=== PATIENT | female | born 1955 | race Caucasian/White ===

== ENCOUNTER 2019-08-11 05:25 | Observation (INO) ==
[2019-08-11] MEDS ORDERED: PROPOFOL 10 MG/1 ML (200 MG/20 ML) VIAL IV ONE ×2 (05:52→06:10)
[2019-08-11] MEDS ORDERED: Sodium Chloride 0.9% 1,000 ML PRIMARY IV ONE (05:55)
[2019-08-11] MEDS ORDERED: HYDROmorphone 2 MG/1 ML IVP ONE (06:15)
[2019-08-11 07:43] LABS: BASOPHILS # (AUTO) 0.04 10*3/UL; BASOPHILS % (AUTO) 0.4 % (0-1); BLOOD UREA NITROGEN 10 mg/dL (7-22); EOSINOPHILS # (AUTO) 0.22 10*3/UL; Hematocrit [HCT] 45.2 % (37.0-47.0); Hemoglobin [HGB] 14.6 g/dL (12.0-16.0); LYMPHOCYTES # (AUTO) 5.47 10*3/uL; MEAN CORPUSCULAR HGB CONC 32.3 g/dL (33-37); MEAN CORPUSCULAR VOLUME 89.2 FL (81-99); MONOCYTES # (AUTO) 1.01 10*3/UL (0.3-0.8); MONOCYTES % (AUTO) 9.3 % (5-15); NEUTROPHILS # (AUTO) 4.07 10*3/UL; NEUTROPHILS % (AUTO) 37.6 % (50-80); RED BLOOD COUNT 5.07 10^6/uL (4.20-5.40); SERUM ALBUMIN 4.3 g/dL (3.5-4.8)
[2019-08-11 07:44] LABS: PLATELET MORPHOLOGY COMMENT NORMAL MORPHOLOGY (NORM); RBC MORPHOLOGY COMMENT NORMAL MORPHOLOGY (NORM); WBC MORPHOLOGY COMMENT NORMAL MORPHOLOGY (NORM)
[2019-08-11] MEDS ORDERED: DOCUSATE 100 MG CAPSULE PO PRN (08:28)
[2019-08-11] MEDS ORDERED: CALCIUM CARBONATE 500 MG (TUMS) CHEWABLE TABLET PO PRN (08:28)
[2019-08-11] MEDS ORDERED: LIDOCAINE W/ SODIUM BICARB 0.5 ML SYR SUBD PRN (08:28)
[2019-08-11] MEDS ORDERED: POTASSIUM CHLORIDE 20 MEQ TAB PO ONE (08:28)
[2019-08-11] MEDS ORDERED: HYDROcodone-APAP 10 MG-325 MG TABLET PO PRN (08:28)
[2019-08-11] MEDS ORDERED: ACETAMINOPHEN 325 MG TABLET PO PRN (08:28)
[2019-08-11] MEDS ORDERED: ONDANSETRON 4 MG/2 ML VIAL IVP PRN (08:28)
[2019-08-11] MEDS ORDERED: tiZANidine Tab 4 MG TAB PO SCH (09:00)
[2019-08-11] MEDS ORDERED: buPROPion XL Tab 150 MG TAB PO SCH (09:00)
[2019-08-11] MEDS ORDERED: MOMETASONE INH SCH (09:00)
[2019-08-11] MEDS ORDERED: FORMOTEROL INH SCH (09:00)
[2019-08-11] MEDS ORDERED: ETODOLAC 500 MG PO SCH (09:00)
[2019-08-11] MEDS ORDERED: MOMETASONE FUROATE ENOS SCH (09:00)
[2019-08-11] MEDS: HYDROmorphone 2 MG/1 ML IVP PRN ×3 (09:02→18:57)
[2019-08-11] MEDS: PREGABALIN 100 MG CAPSULE PO SCH ×3 (10:14→15:04)
[2019-08-11] MEDS: ESCITALOPRAM 10 MG TABLET PO SCH ×2 (10:14→10:22)
[2019-08-11] MEDS ORDERED: Sodium Chloride 0.9% 500 ML IV ONE (11:57)
[2019-08-11] MEDS ORDERED: Sodium Chloride 0.9% 1,000 ML PRIMARY IV SCH (15:00)
[2019-08-11 16:04] VITALS: BP 118/76
[2019-08-11 19:46] VITALS: RESP 16; TEMP 99; O2SAT 96
[2019-08-11] MEDS ORDERED: traZODone Tab 50 MG TAB PO SCH (21:00)
[2019-08-11] MEDS ORDERED: Montelukast Tab 10 MG TAB PO SCH (21:00)
[2019-08-11] MEDS ORDERED: Simvastatin Tab 40 MG TAB PO SCH (21:00)
== END 2019-08-11 20:03 | disposition short-term general hospital (02) ==
LOC: MED/SURG 05:25 → ER 05:25 → MED/SURG 08:15
PROVIDERS: ADMIT Family Medicine; ATTEND Family Medicine